=== PATIENT | male | born 1995 | race Caucasian/White ===

== ENCOUNTER 2019-11-18 19:05 | Emergency (ER) | payer SELFPAY ==
[~2019-11-18] VITALS: Ht 170.2 cm; Wt 79.5 kg
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
[2019-11-18] MEDS ORDERED: ONDANSETRON ODT 4 MG TAB.RAPDIS. PO ONE (19:45)
[2019-11-18] MEDS ORDERED: HYDROcodone/APAP 5/325MG 1 TAB TABLET PO ONE (19:45)
[2019-11-18 20:15] VITALS: BP 132/84
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
[2019-11-18] MEDS ORDERED: ONDANSETRON ODT 4 MG TAB.RAPDIS. ONE (20:31)
[2019-11-18] MEDS ORDERED: HYDROcodone/APAP 5/325MG 1 TAB TABLET ONE (20:31)
== END 2019-11-18 20:45 | disposition home or self-care (01) ==
LOC: ER 19:05
DX: G89.11 Acute pain due to trauma (principal); M79.661 Pain in right lower leg; R11.0 Nausea; F17.200 Nicotine dependence, unspecified, uncomplicated; Z98.890 Other specified postprocedural states; W10.8XXA Fall (on) (from) other stairs and steps, initial encounter; Y93.89 Activity, other specified; Y92.89 Other specified places as the place of occurrence of the external cause; Y99.8 Other external cause status
CPT/HCPCS: 73590; 99284; Q0162